=== PATIENT | female | born 1990 | race Caucasian/White ===

== ENCOUNTER 2018-09-05 15:23 | Outpatient (CLI) | payer OTHER | END 2018-09-05 15:25 | LOC: LAB 15:23 | PROVIDERS: ATTEND Family Medicine | DX: E89.40 Asymptomatic postprocedural ovarian failure (principal) | CPT/HCPCS: 36415; 82672 ==

== ENCOUNTER 2019-01-22 14:38 | Emergency (ER) | payer OTHER ==
[2019-01-22] MEDS ORDERED: NORMAL SALINE 1,000 ML IV.SOLN IV ONE (15:30)
[2019-01-22] MEDS ORDERED: ONDANSETRON HCL/PF 4 MG/ 2ML VIAL ONE (15:30)
[2019-01-22] MEDS ORDERED: KETOROLAC TROMETHAMINE 30 MG/1ML VIAL ONE (15:30)
[2019-02-04 12:13] LABS: APPEARANCE,URINE CLEAR (CLEAR); COLOR,URINE YELLOW (YELLOW); OCCULT BLOOD,URINE NEGATIVE (NEGATIVE); UROBILINOGEN URINE 0.2 Eu (0.2-1.0)
[2019-02-04 12:17] LABS: BASOPHILS % 0.4 % (0.0-1.5); NEUTROPHILS # 5.2 # k/uL (1.4-7.7); eGFR (Non-African) > 60
--- NOTE | 2019-02-04 15:07 | Diagnostic Imaging Report ---
KCAEY SADLER [facility] [address] [facility].[address] [id number] Report Submission Date: Jan 22, 2019 4:09:26 PM CDT Patient Study Name: VIRGIL LYON Date: Jan 22, 2019 3:42:00 PM CDT Modality Type: CT\SR Gender: F Description: CT ABD/PELV W/CONTRAST : 88 Institution: [facility] Physician: KACEY SADLER CT abdomen and pelvis with contrast History: Left lower quadrant pain. [employer] shunt placed 4 years ago Technique: Helically acquired images were obtained from the hemidiaphragms to the pelvic floor following IV contrast. Findings: Lung bases are clear. The liver, spleen, gallbladder, adrenal glands, pancreas, kidneys and the abdominal aorta are unremarkable. Small and large bowel loops are normal in caliber. A ventriculoperitoneal shunt catheter is present. The tip of the catheter is within the left pelvis just superior to the bladder. There is a small amount of free fluid in the pelvis which would relate to the presence of the shunt catheter. There has been a hysterectomy. Bladder configuration is normal. The abdominal aorta is normal in caliber. No osseous abnormalities are noted. Impression: Presence of a ventriculoperitoneal shunt. The tip of the shunt is at the left lower quadrant just above the level of the bladder. There is a small amount of free fluid in the pelvis relating to the presence of the shunt. No additional intra-abdominal or intrapelvic abnormalities are noted. Electronically signed on Jan 22, 2019 4:09:26 PM CDT by: Vandana BETTENCOURT
== END 2019-01-22 16:55 | disposition home or self-care (01) ==
LOC: ED 14:38
DX: R10.32 Left lower quadrant pain (principal)
CPT/HCPCS: 74177; 80053; 81002; 85025; 99283; J1885; J2405; J7030; Q9967; S1016

== ENCOUNTER 2019-04-23 20:51 | Emergency (ER) | payer BC ==
[2019-04-23] MEDS ORDERED: KETOROLAC TROMETHAMINE 60 MG/2 ML VIAL IM ONE (21:24)
--- NOTE | 2019-04-23 21:28 | ED Physician Documentation ---
Neck Injury/Pain - HISTORIAN Historian: patient - HPI Stated Complaint: NECK STIFFNESS, KILPATRICK Chief Complaint: Neck Injury Additional Information: 28 year old female states that she works at the [employer]; has worked 9 straight shifts; called in tonight due to neck pain and headache; took Excedrin but did not feel like she could go to work; denies f/c/n/v/d. Onset: today Duration: better Recent Injury: No Context: denies: lifting, turning Where: home Other Injuries: neck Severity: mild Quality: denies: burning, sharp, dull Associated Symptoms: denies: fever, chills Exacerbated By: nothing Relieved By: nothing - ROS NEURO/PSYCH: denies: difficulty with speech EYES/ENT: none CVS/RESP: none CONST: no problems GI/: denies: nausea, vomiting MS/SKIN/LYMPH: none - PAST HX Past History: other (migraines) Surgeries/Procedures: other (hysterectomy) CT/MRI: No Immunizations: influenza, UTD Allergies/Adverse Reactions: Allergies Allergy/AdvReac Type Severity Reaction Status Date / Time latex Allergy Verified 04/23/19 21:15 metoclopramide [From Reglan] Allergy Verified 04/23/19 21:15 rizatriptan [From Maxalt] Allergy Verified 04/23/19 21:15 - SOCIAL HX Smoking History: non-smoker Alcohol Use: none Drug Use: none - FAMILY HX Family History: none - VITAL SIGNS Vital Signs: Vital Signs Temp Pulse Resp BP Pulse Ox 98.7 F 92 H 18 108/77 98 04/23/19 21:30 04/23/19 21:30 04/23/19 21:30 04/23/19 21:30 04/23/19 20:51 - REVIEWED ASSESSMENT Nursing Assessment Reviewed: Yes Vitals Reviewed: Yes ED Results Lab/Radiology - Orders Orders: ED Orders Category Date Time Status INFLUENZA A&B Stat Lab 04/23/19 21:21 Ordered Ketorolac Tromethamine [Toradol] Med 04/23/19 21:24 Discontinued 60 mg IM NOW ONE Neck Injury/Pain - Physical Exam General Appearance: no acute distress, alert EENT: nml ENT inspection, pharynx nml Neck: nml inspection, non-tender, painless ROM, muscle spasm Back: non-tender, painless ROM Respiratory: breath sounds nml CVS: heart sounds nml Abdomen: nml bowel sounds Skin: warm/dry, normal color Extremities: non-tender, normal range of motion Neuro/Psych: oriented x3, CN's nml as tested, sensation nml, motor nml, mood/affect nml, trim setter helper nml, trim setter helper symmetrical Discharge Clincal Impression: Muscle spasms of neck Referrals: Adryan Swain MD [Primary Care Provider] - 2 Days Condition: Good Disposition: 01 HOME, SELF-CARE Decision to Admit: NO Decision Time: 21:30
[2019-04-23 21:51] VITALS: BP 108/77
== END 2019-04-23 21:30 | disposition home or self-care (01) ==
LOC: ED 20:51
DX: M62.838 Other muscle spasm (principal)
CPT/HCPCS: 87400; 96372; 99282; 99283; J1885